=== PATIENT | female | born 1960 | race Hispanic/Latino ===

== ENCOUNTER 2024-06-27 11:38 | Emergency (ER) | payer SELFPAY ==
[~2024-06-27] VITALS: Ht 154.9 cm; Wt 89.6 kg
[2024-06-27 11:42] VITALS: TEMP 97.8
[2024-06-27] MEDS ORDERED: KETOROLAC TROMETHAMINE 30 MG/ML VIAL IV ONE (12:00)
[2024-06-27] MEDS ORDERED: LYRICA75 MG PO (12:04)
[2024-06-27] MEDS ORDERED: METFORMIN HCL850 MG PO (12:04)
[2024-06-27] MEDS ORDERED: bezafibrate (12:04)
[2024-06-27] MEDS ORDERED: MICARDIS40 MG PO (12:04)
[2024-06-27] MEDS ORDERED: ALLOPURINOL100 MG PO (12:04)
[2024-06-27] MEDS ORDERED: [UNRECOGNIZED DRUG - OTHER] PO (12:04)
[2024-06-27] MEDS ORDERED: PENTOXIFYLLINE400 MG PO (12:04)
[2024-06-27] MEDS: ONDANSETRON HCL INJ 2MG/ML 2ML 2 MG/ML VIAL IV ONE (12:18)
[2024-06-27] MEDS: FAMOTIDINE 20 MG/2 ML VIAL IV ONE (12:18)
[2024-06-27] MEDS: SODIUM CHLORIDE 0.9% 1000ML 1,000 ML IV STA (12:20)
[2024-06-27] MEDS: Morphine 4mg INJECTION 4 MG/ML INJ IV ONE (13:15)
[2024-06-27 14:25] VITALS: BP 198/93
[2024-06-27] MEDS: HYDRALAZINE HCL 20 MG/ML VIAL IV STA (14:25)
[2024-06-27 14:50] VITALS: PULSE 80; RESP 15; O2SAT 98
== END 2024-06-27 14:56 | disposition other institution (70) ==
LOC: FSED 11:45
DX: N17.9 Acute kidney failure, unspecified (principal); N13.2 Hydronephrosis with renal and ureteral calculous obstruction; E87.5 Hyperkalemia; I12.9 Hypertensive chronic kidney disease with stage 1 through stage 4 chronic kidney disease, or unspecified chronic kidney disease; E11.22 Type 2 diabetes mellitus with diabetic chronic kidney disease; E11.65 Type 2 diabetes mellitus with hyperglycemia; N18.9 Chronic kidney disease, unspecified
CPT/HCPCS: 74176; 80053; 81003; 85025; 96374; 96375; 99284; J0360; J1308; J2270; J2405; J7030